=== PATIENT | female | born 1990 | race Caucasian/White ===

== ENCOUNTER 2022-02-19 09:03 | Emergency (ER) | payer BC, SELFPAY ==
[2022-02-19 09:13] VITALS: BP 144/81; PULSE 71; TEMP 37.1; O2SAT 99; BMI 30.8
--- NOTE | 2022-02-19 09:57 | ED.URI ---
HPI - URI/Sore Throat General Time Seen by Provider: 09:57 Date Seen: 02/19/22 Chief Complaint: Sore Throat Stated Complaint: Exposed to strep throat Source: patient, RN notes reviewed and old records reviewed Mode of arrival: ambulatory Limitations: no limitations History of Present Illness HPI Narrative: Naya is a very pleasant 32-year-old female previously healthy comes to the [facility] for sore throat. Patient called our clinic and was unable to be seen. She notes the onset of a sore throat in the last 24 hours associated with some body aches. Patient notes that she was exposed to a co-worker who has strep. She denies runny nose, cough, vomiting, diarrhea. Related Data Home Medications Medication Instructions Recorded Confirmed No Known Home Medications 02/19/22 02/19/22 Allergies Allergy/AdvReac Type Severity Reaction Status Date / Time amoxicillin Allergy Unknown Verified 02/19/22 09:16 Review of Systems Status of ROS: Reports: 10 or more systems reviewed and unremarkable except as noted in History and below Const: Denies: fever or chills Eyes: Denies: change in vision ENMT: Reports: throat pain; Denies: neck pain, throat swelling or hoarseness Cardio: Denies: chest pain or shortness of breath with exertion Resp: Denies: shortness of breath or cough GI: Reports: nausea; Denies: abdominal pain or vomiting : Denies: painful urination Musculo: Denies: neck pain Neuro: Denies: headache Allergy/Immuno: Denies: throat swelling PFSH PFSH Social History Smoking Status: Never smoker Do you use any of these nicotine containing products: None Second hand tobacco smoke exposure: No How often do you have a drink containing alcohol: never How often do you have six or more drinks on one occasion: Never AUDIT-C Alcohol total score: 0 Non-prescribed substance use: denies use Exam Const: Vital Signs, click to edit/add: Vital Signs - 24 hr 02/19/22 09:13 Temperature 98.8 F Pulse Rate [Right Pulse Oximeter] 71 Blood Pressure [Ri ght Upper Arm] 144/81 H Pulse Oximetry 99 Oxygen Delivery Me thod Room Air Documenting provider has reviewed patient's vital signs: yes Common normals: no apparent distress and oriented x3 General appearance: cooperative, comfortable and well kempt HENMT: Common normals: normocephalic Head and scalp: normocephalic Other: Examination of the oral cavity shows small areas of exudate noted on the right tonsil in the right posterior oropharynx. Mild erythema. Soft palate appears normal. Neck is supple without lymphadenopathy. Eye: Common normals: PERRL General eye: normal appearance of both eyes Pupil: PERRL Neck & C-Spine: Common normals: full ROM, no lymphadenopathy and supple Resp: Common normals: normal respiratory effort and clear to auscultation bilaterally Auscultation: clear to auscultation bilaterally Cardio: Common normals: regular rate and regular rhythm Rate: regular rate Rhythm: regular rhythm GI: Common normals: soft to palpation and non-tender Palpation: soft Neuro: Common normals: oriented x3 Psych: Common normals: mental status grossly normal Appearance: well kempt Skin: Common normals: no rashes or lesions noted General skin exam: no rashes or lesions noted Course Course Hospital Course: Patient noted to have a known exposure to strep. Now has sore throat with some mild exudate. Currently awaiting strep and COVID testing. Vital Signs Vital signs: Initial Vital Signs Temperature 98.8 F 02/19/22 09:13 Temperature Source Temporal Artery Scan 02/19/22 09:13 Pulse Rate 71 02/19/22 09:13 Blood Pressure 144/81 H 02/19/22 09:13 Blood Pressure Mean 102 02/19/22 09:13 Blood Pressure Position Supine 02/19/22 09:13 Pulse Oximetry 99 02/19/22 09:13 Oxygen Delivery Method 02/19/22 09:13 Vital Signs Temperature 98.8 F 02/19/22 09:13 Pulse Rate 71 02/19/22 09:13 Blood Pressure 144/81 H 02/19/22 09:13 Pulse Oximetry 99 02/19/22 09:13 Oxygen Delivery Method 02/19/22 09:13 Temperature 98.8 F 02/19/22 09:13 Pulse Rate 71 02/19/22 09:13 Blood Pressure 144/81 H 02/19/22 09:13 Pulse Oximetry 99 02/19/22 09:13 Oxygen Delivery Method 02/19/22 09:13 MDM - URI/Sore Throat MDM Narrative Medical decision making narrative: 1. Pharyngitis-at this time patient has tested negative for COVID, influenza and strep. Patient is nontoxic in appearance. She is actually walking out of the ED because she wants to go home at this time. I do stop her and I am able to talk to her in the triage room. Do suggest retest of COVID tomorrow or . If she has ongoing symptoms or worsening symptoms would ask that she be seen in the ED or the clinic if possible. Her abdomen is soft. Of course mono would be in the differential diagnosis with these negative test. She agrees to return as needed. 2. Disposition-home without discharge papers. She is preferring to go rather than wait for papers. Medical Records Attestation: I reviewed the patient's medical records. Lab Data Attestation: I reviewed the patient's lab results. Labs: Lab Results 02/19/22 02/19/22 Range/Units 09:21 09:21 SARS-CoV-2 (PCR) Negative SARS-CoV-2 (Negative) Influenza Type A (PCR) Negative PCR FLU A (Negative) Influenza Type B (PCR) Negative PCR FLU B (Negative) Group A Strep Rapid Not Detected (Not Detecte) Discharge Plan Discharge Prescriptions: No Action No Known Home Medications Follow Up/Referrals: Provider,Not a Local [Primary Care Provider] -
[2022-02-19 10:13] LABS: PCR FLU A Negative PCR FLU A (Negative); PCR FLU B Negative PCR FLU B (Negative)
[2022-02-19 10:14] LABS: SARS PCR* Negative SARS-CoV-2 (Negative)
--- NOTE | 2022-02-19 10:29 | ED.NURSE ---
Pt at reg desk asking to leave. Had not received results yet. notified, MD provided results to pt in triage RM. Pt then left ER.
== END 2022-02-19 10:31 | disposition home or self-care (01) ==
LOC: ED 09:36
PROVIDERS: Emergency Provider Family Medicine
DX: J02.9 Acute pharyngitis, unspecified (principal)
CPT/HCPCS: 87631; 87651; 99282; 99283